=== PATIENT | male | born 1940 | race Caucasian/White ===

== ENCOUNTER → 2016-11-24 | Outpatient (CLI) | payer MEDICARE, OTHER ==
[~2016-11-24] MED LIST: ASPI-191 PO; ATOR80TA75 PO; CARV3.1212 PO; TICA90TA PO
== END | disposition home or self-care (01) ==
LOC: CFH 07:20
PROVIDERS: ATTEND Internal Medicine Cardiovascular Disease
DX: I08.3 Combined rheumatic disorders of mitral, aortic and tricuspid valves (principal); I25.2 Old myocardial infarction; I10 Essential (primary) hypertension; F17.200 Nicotine dependence, unspecified, uncomplicated; Z95.5 Presence of coronary angioplasty implant and graft
CPT/HCPCS: 93306